=== PATIENT | male | born 1995 | race Caucasian/White ===

== ENCOUNTER 2016-10-29 17:54 | Emergency (ER) | payer OTHER ==
--- NOTE | 2016-10-29 18:37 | ER Document Report ---
HPI - HPI Patient complains to provider of: right foot injury Onset: Other Onset/Duration: Sudden Quality of pain: Throbbing Severity: Moderate Pain Level: 4 Context: Patient was playing basketball and injured right foot 4 days ago. Has been using crutches that he has at home, but complains of continued pain to mid right foot. Associated Symptoms: None Exacerbated by: Movement, Walking Relieved by: Remaining still Similar symptoms previously: No Recently seen / treated by doctor: No - ROS ROS below otherwise negative: Yes Systems Reviewed and Negative: Yes All other systems reviewed and negative - CONSTITUTIONAL Constitutional: DENIES: Fever - EENT EENT: DENIES: Congestion - NEURO Neurology: DENIES: Headache - CARDIOVASCULAR Cardiovascular: DENIES: Chest pain - RESPIRATORY Respiratory: DENIES: Trouble Breathing - GASTROINTESTINAL Gastrointestinal: DENIES: Abdominal Pain - URINARY Urinary: DENIES: Dysuria - MUSCULOSKELETAL Musculoskeletal: REPORTS: Extremity pain - Foot - DERM Skin Color: Ecchymosis Past Medical History - General Information source: Patient - Social History Smoking Status: Never Smoker Chew tobacco use (# tins/day): No Frequency of alcohol use: None Drug Abuse: None Lives with: Family Family History: Reviewed & Not Pertinent Neurological Medical History: Reports: Hx Seizures Surgical Hx: Negative Vertical Provider Document - CONSTITUTIONAL Agree With Documented VS: Yes Exam Limitations: No Limitations General Appearance: WD/WN, No Apparent Distress - INFECTION CONTROL TRAVEL OUTSIDE OF THE [place] IN LAST 30 DAYS: No - HEENT HEENT: Atraumatic, Normocephalic - RESPIRATORY Respiratory: Breath Sounds Normal, No Respiratory Distress O2 Sat by Pulse Oximetry: 97 - CARDIOVASCULAR Cardiovascular: Regular Rate, Regular Rhythm - GI/ABDOMEN Gastrointestinal: Abdomen Soft - MUSCULOSKELETAL/EXTREMETIES Musculoskeletal/Extremeties: Tender, Edema, Eccymosis - Arch of right foot extending to between toes - NEURO Level of Consciousness: Awake, Alert, Appropriate - DERM Integumentary: Warm, Dry Course - Re-evaluation Re-evalutation: 10/29/16 19:02 X-rays read as negative by radiologist and discussed with patient. - Vital Signs Vital signs: Temp Pulse Resp BP Pulse Ox 98 F 78 16 135/78 H 97 10/29/16 17:55 10/29/16 17:55 10/29/16 17:55 10/29/16 17:55 10/29/16 17:55 Procedures - Immobilization Right Foot Pre-Proc Neuro Vasc Exam: Normal Immobilizer type: Stanley wrap Performed by: PCT Post-Proc Neuro Vasc Exam: Normal Alignment checked and good: Yes Discharge - Discharge Clinical Impression: Right foot sprain Qualifiers: Encounter type: initial encounter Qualified Code(s): S93.601A - Unspecified sprain of right foot, initial encounter Condition: Good Disposition: HOME, SELF-CARE Instructions: Ice Packs ([facility]), Sprain ([facility]) Additional Instructions: ice and elevate foot use crutches motrin for pain follow up with PCP if not better one week return as needed. Prescriptions: Ibuprofen 800 mg PO PRN PRN #20 tablet PRN Reason: Forms: Return to Work
--- NOTE | 2016-10-29 18:55 | RADIOLOGY REPORT (SQ) ---
EXAM DESCRIPTION: FOOT RIGHT COMPLETE COMPLETED DATE/TIME: 10/29/2016 6:27 pm REASON FOR STUDY: injury COMPARISON: None. NUMBER OF VIEWS: Three views. TECHNIQUE: AP, lateral and oblique radiographic images acquired of the right foot. LIMITATIONS: None. FINDINGS: MINERALIZATION: Normal. BONES: No acute fracture or dislocation. No worrisome bone lesions. JOINTS: No effusions. SOFT TISSUES: No soft tissue swelling. No foreign body. OTHER: No other significant finding. IMPRESSION: NEGATIVE STUDY OF THE RIGHT FOOT. NO RADIOGRAPHIC EVIDENCE OF ACUTE INJURY. TECHNICAL DOCUMENTATION: JOB ID: [id number] [employer]- All Rights Reserved
[2016-10-29 19:10] VITALS: BP 123/77
== END 2016-10-29 19:10 | disposition home or self-care (01) ==
LOC: ER 17:54
DX: S93.601A Unspecified sprain of right foot, initial encounter (principal); X58.XXXA Exposure to other specified factors, initial encounter; Y93.67 Activity, basketball
CPT/HCPCS: 99283

== ENCOUNTER 2017-02-04 07:18 | Emergency (ER) | payer OTHER ==
[2017-02-04] MEDS ORDERED: NORMAL SALINE 1000 ML 1,000 ML IV PRN (07:30)
[2017-02-04 07:53] LABS: HEMATOCRIT 45.2 % (37.9-51.0); HEMOGLOBIN 14.6 g/dL (13.5-17.0); HGB HCT DIFFERENCE -1.4; MEAN CORPUSCULAR HEMOGLOBIN 29.6 pg (27.0-33.4); MEAN CORPUSCULAR HGB CONC 32.2 g/dL (32.0-36.0); MEAN CORPUSCULAR VOLUME 92 fl (80-97); RED BLOOD COUNT 4.92 10^6/uL (4.35-5.55); RED CELL DISTRIBUTION WIDTH 15.4 % (11.5-14.0)
[2017-02-04 08:09] LABS: BAND NEUTROPHILS % (MANUAL) 2 % (3-5); BASOPHILS % (MANUAL) 1 % (0-2); EOSINOPHILS % (MANUAL) 2 % (0-6); LYMPHOCYTES % (MANUAL) 57 % (13-45); TOTAL CELLS COUNTED 100
[2017-02-04 08:10] LABS: ALANINE AMINOTRANSFERASE 25 U/L (21-72); ALBUMIN 4.8 g/dL (3.5-5.0); ALKALINE PHOSPHATASE 76 U/L (38-126); ASPARTATE AMINO TRANSFERASE 29 U/L (17-59); BILIRUBIN,DIRECT 0.3 mg/dL (0.0-0.4); BILIRUBIN,TOTAL 0.7 mg/dL (0.2-1.3); BLOOD UREA NITROGEN 7 mg/dL (7-20); CALCIUM 9.3 mg/dL (8.4-10.2); CARBON DIOXIDE 12 mmol/L (22-30); CHLORIDE 105 mmol/L (98-107); CREATINE KINASE 108 U/L (55-170); CREATININE RESULT 0.78 mg/dL (0.52-1.25); GLUCOSE 127 mg/dL (75-110); POTASSIUM 3.7 mmol/L (3.6-5.0); RBC MORPHOLOGY COMMENT NORMO-CYTIC/CHROMIC; SODIUM 146.6 mmol/L (137-145); TOTAL PROTEIN 7.4 g/dL (6.3-8.2)
[2017-02-04 08:15] LABS: VALPROIC ACID 53.7 ug/mL (50.0-120.0)
[2017-02-04 08:26] LABS: ALCOHOL < 10 mg/dL (NONE DETECTED); ANION GAP 30 (5-19)
--- NOTE | 2017-02-04 08:35 | ER Document Report ---
ED General - General Chief Complaint: Probable Seizure Stated Complaint: POSSIBLE SEIZURE Time Seen by Provider: 02/04/17 07:29 TRAVEL OUTSIDE OF THE [place] IN LAST 30 DAYS: No - HPI Patient complains to provider of: Seizure Notes: Patient coming in today for evaluation after having a seizure. Friends are at bedside states seizure activity time clonic jerking ongoing for approximately 3- 5 minutes patient upon my evaluation slightly confused however no signs of any obvious distress. Friend states patient has a history of seizure activity and is on Depakote. Patient is able to answer a few questions states that he does not drink any alcohol does smoke marijuana denies any other illicit drugs. Denies any symptoms or trauma today. Day prior. Patient otherwise resting comfortably looks to be slightly postictal however mental status continues to improve during her evaluation in the room. States he has had seizures ever since he was an adolescent - Related Data Allergies/Adverse Reactions: sulfamethoxazole [From Septra] Allergy (Verified 05/20/14 22:33) trimethoprim [From Septra] Allergy (Verified 05/20/14 22:33) Past Medical History - Social History Smoking Status: Former Smoker Chew tobacco use (# tins/day): No Frequency of alcohol use: Occasional Drug Abuse: Marijuana Family History: Reviewed & Not Pertinent Patient has suicidal ideation: No Patient has homicidal ideation: No Neurological Medical History: Reports: Hx Seizures - depakote Renal/ Medical History: Denies: Hx Peritoneal Dialysis Review of Systems - Review of Systems Constitutional: No symptoms reported EENT: No symptoms reported Cardiovascular: No symptoms reported Respiratory: No symptoms reported Gastrointestinal: No symptoms reported Genitourinary: No symptoms reported Male Genitourinary: No symptoms reported Musculoskeletal: No symptoms reported Skin: No symptoms reported Hematologic/Lymphatic: No symptoms reported Neurological/Psychological: Seizure -: Yes All other systems reviewed and negative Physical Exam - Vital signs Vitals: Temp 97.5 F 02/04/17 07:29 Interpretation: Normal - General General appearance: Appears well, Alert - HEENT Head: Normocephalic, Atraumatic Eyes: Normal Pupils: PERRL - Respiratory Respiratory status: No respiratory distress Chest status: Nontender Breath sounds: Normal Chest palpation: Normal - Cardiovascular Rhythm: Regular Heart sounds: Normal auscultation Murmur: No - Abdominal Inspection: Normal Distension: No distension Bowel sounds: Normal Tenderness: Nontender Organomegaly: No organomegaly - Back Back: Normal, Nontender - Extremities General upper extremity: Normal inspection, Nontender, Normal color, Normal ROM , Normal temperature General lower extremity: Normal inspection, Nontender, Normal color, Normal ROM , Normal temperature, Normal weight bearing. No: Daryl's sign - Neurological Neuro grossly intact: Yes Cognition: Normal Orientation: AAOx4 Alicia Coma Scale Eye Opening: Spontaneous Alicia Coma Scale Verbal: Oriented Merced Coma Scale Motor: Obeys Commands Alicia Coma Scale Total: 15 Speech: Normal Motor strength normal: LUE, RUE, LLE, RLE Sensory: Normal - Psychological Associated symptoms: Normal affect, Normal mood - Skin Skin Temperature: Warm Skin Moisture: Dry Skin Color: Normal Course - Re-evaluation Re-evalutation: 02/04/17 08:35 We will obtain basic laboratory studies. 02/04/17 13:46 Initial laboratory studies show significant decrease in bicarb and anion gap. This resolved with IV fluids more likely reactive to the patient having a seizure. Patient is back to baseline no complaints neurologically intact will discharge patient home. Breakthrough seizure with known seizure disorder and previous neurology evaluation. Now returned to neuro baseline. Labs reviewed. No indication of new or acute process. Patient appears safe for discharge with observation and close outpatient F/U with PCP or neurology. Seizure warnings discussed with patient / family. - Vital Signs Vital signs: Temp Pulse Resp BP Pulse Ox 97.5 F 21 H 122/63 98 02/04/17 07:29 02/04/17 10:46 02/04/17 10:46 02/04/17 10:46 - Laboratory Result Diagrams: 02/04/17 07:29 02/04/17 08:55 Laboratory results interpreted by me: 02/04/17 02/04/17 02/04/17 07:29 07:29 08:28 WBC 15.0 H RDW 15.4 H Seg Neuts % (Manual) 23 L Band Neutrophils % 2 L Lymphocytes % (Manual) 57 H Metamyelocytes % 1 H Abs Lymphs (Manual) 9.3 H Sodium 146.6 H Chloride Carbon Dioxide 12 L Anion Gap 30 H BUN Glucose 127 H Calcium Urine Ketones 20 H Salicylates < 1.0 L Acetaminophen < 10 L 02/04/17 08:55 WBC RDW Seg Neuts % (Manual) Band Neutrophils % Lymphocytes % (Manual) Metamyelocytes % Abs Lymphs (Manual) Sodium Chloride 112 H Carbon Dioxide 20 L Anion Gap BUN 6 L Glucose Calcium 7.9 L Urine Ketones Salicylates Acetaminophen Discharge - Discharge Clinical Impression: Seizure Condition: Good Disposition: HOME, SELF-CARE Instructions: Seizure, Known Epileptic ([facility]) Additional Instructions: Please continue your medication as prescribed. Please avoid smoking cigarettes and marijuana. Return to ER symptoms worsen follow-up with your primary care physician. Forms: Return to Work
[2017-02-04] MEDS ORDERED: NORMAL SALINE 1000 ML 1,000 ML IV ONE (08:50)
[2017-02-04 09:16] LABS: APPEARANCE,URINE CLEAR; BILIRUBIN,URINE NEGATIVE (NEGATIVE); GLUCOSE, URINE NEGATIVE (NEGATIVE); KETONES,URINE 20 mg/dL (NEGATIVE); LEUKOCYTE ESTERASE,URINE NEGATIVE (NEGATIVE); NITRITE,URINE NEGATIVE (NEGATIVE); PROTEIN,URINE NEGATIVE (NEGATIVE); URINE SPECIFIC GRAVITY 1.014; UROBILINOGEN,URINE NEGATIVE mg/dL (<2.0)
[2017-02-04 09:30] LABS: ANION GAP 11 (5-19); BLOOD UREA NITROGEN 6 mg/dL (7-20); CALCIUM 7.9 mg/dL (8.4-10.2); CARBON DIOXIDE 20 mmol/L (22-30); CHLORIDE 112 mmol/L (98-107); CREATININE RESULT 0.68 mg/dL (0.52-1.25); GLUCOSE 89 mg/dL (75-110); POTASSIUM 4.2 mmol/L (3.6-5.0); SODIUM 143.3 mmol/L (137-145)
[2017-02-04 09:40] LABS: URINE BARBITURATES SCREEN NEGATIVE; URINE METHADONE SCREEN NEGATIVE; URINE OPIATES LOW NEGATIVE; URINE PHENCYCLIDINE SCREEN NEGATIVE
[2017-02-04 10:59] VITALS: BP 122/63
--- NOTE | 2017-02-06 09:02 | EKG REPORT ---
SEVERITY:- OTHERWISE NORMAL ECG - SINUS TACHYCARDIA : Confirmed by: Mony Dempsey 06-Feb-2017 09:02:07
== END 2017-02-04 11:06 | disposition home or self-care (01) ==
LOC: ER 07:18
DX: R56.9 Unspecified convulsions (principal); Z87.891 Personal history of nicotine dependence
CPT/HCPCS: 93005; 99284; 96360; 96361; 36415; 80307 ×4; 82550; 85025; 80048; 80053; 81001; 80164; 93010; J7030

== ENCOUNTER 2017-07-19 19:09 | Emergency (ER) | payer OTHER ==
[2017-07-19 21:17] LABS: ABSOLUTE LYMPHOCYTES (AUTO) 0.8 10^3/uL (0.5-4.7); ABSOLUTE MONOCYTES (AUTO) 1.3 10^3/uL (0.1-1.4); ABSOLUTE NEUT (AUTO) 8.3 10^3/uL (1.7-8.2); BASOPHILS % (AUTO) 0.2 % (0-2); EOSINOPHILS % (AUTO) 0.2 % (0-6); HEMATOCRIT 48.2 % (37.9-51.0); HEMOGLOBIN 16.2 g/dL (13.5-17.0); LYMPHOCYTES % (AUTO) 7.6 % (13-45); MEAN CORPUSCULAR HEMOGLOBIN 29.1 pg (27.0-33.4); MEAN CORPUSCULAR HGB CONC 33.6 g/dL (32.0-36.0); MEAN CORPUSCULAR VOLUME 87 fl (80-97); MONOCYTES % (AUTO) 12.4 % (3-13); PLATELET COUNT 163 10^3/uL (150-450); RED BLOOD COUNT 5.56 10^6/uL (4.35-5.55); RED CELL DISTRIBUTION WIDTH 15.7 % (11.5-14.0); SEGMENTED NEUTROPHILS % (AUTO) 79.6 % (42-78); TOTAL CELLS COUNTED % (AUTO) 100 %; WHITE BLOOD COUNT 10.5 10^3/uL (4.0-10.5)
[2017-07-19] MEDS ORDERED: ONDANSETRON 4 MG TAB.RAPDIS PO ONE (21:27)
[2017-07-19] MEDS ORDERED: KETOROLAC TROMETHAMINE INJ/PF 30 MG/1 ML SDV IM ONE (21:27)
--- NOTE | 2017-07-19 21:30 | ER Document Report ---
ED GI/ - General Chief Complaint: Abdominal Pain Stated Complaint: ABDOMINAL PAIN Time Seen by Provider: 07/19/17 21:07 Mode of Arrival: Ambulatory Information source: Patient TRAVEL OUTSIDE OF THE [place] IN LAST 30 DAYS: No - HPI Patient complains to provider of: Other - cough, headache, bodyaches, abdominal pain, nausea Notes: 07/19/17 21:28 Patient is here with complaints of cough with body aches and mild headache. States the cough and body aches started yesterday. When he woke up this morning and headache seems to be worse when he is coughing. He denies any head injury or fall. He is on no blood thinners. It was not a sudden onset, thunderclap headache. He denies any associated blurred or loss vision, numbness , tingling, weakness, neck stiffness or rash. He denies any fevers. He denies any production to his cough. He denies any shortness of breath. States that his roommate was diagnosed with influenza yesterday. He states that since he has been here he started having some abdominal pain mainly when he is coughing. He has had some intermittent nausea, but denies any vomiting or diarrhea. No dysuria or hematuria. No rash. He has a history of epilepsy, he denies any other chronic medical conditions. No other complaints at this time. - Related Data Allergies/Adverse Reactions: sulfamethoxazole [From Novra] Allergy (Verified 07/19/17 19:10) trimethoprim [From Novra] Allergy (Verified 07/19/17 19:10) Past Medical History - Social History Smoking Status: Unknown if Ever Smoked Family History: Reviewed & Not Pertinent Patient has suicidal ideation: No Patient has homicidal ideation: No Neurological Medical History: Reports: Hx Seizures - depakote Renal/ Medical History: Denies: Hx Peritoneal Dialysis Review of Systems - Review of Systems -: Yes All other systems reviewed and negative Physical Exam - Vital signs Vitals: Temp Pulse Resp BP Pulse Ox 99.8 F 107 H 22 H 122/74 96 07/19/17 19:24 07/19/17 19:24 07/19/17 19:24 07/19/17 19:24 07/19/17 19:24 - Notes Notes: GENERAL: alert, cooperative, nontoxic, no distress. HEAD: normocephalic, atraumatic EYES: conjunctiva pink without discharge, no external redness or swelling. EARS: no external swelling, no external redness. Canals clear. TMs pearly edge with normal landmarks. No erythema or perforation. NOSE: atraumatic, no external swelling MOUTH/THROAT: mucous membranes moist and pink, posterior pharynx without erythema, swelling, exudate. No trismus or drooling. NECK: soft, supple, full range of motion, no meningismus. CHEST: no distress, lungs clear and equal throughout. No wheezing, rales, rhonchi. CARDIAC: regular rate and rhythm, no murmur, normal capillary refill, normal pulses. No peripheral edema noted. ABDOMEN: Soft, mild generalized abdominal wall tenderness. No rebound tenderness or guarding. No mass. BACK: full range of motion, no CVA tenderness. EXTREMITIES: full range of motion of all extremities. No redness, no swelling. NEURO: alert and oriented x 3, no focal deficits, full range of motion of all extremities. Cranial nerves II through XII are grossly intact. PYSCH: appropriate mood, affect. Patient is cooperative. SKIN: pink, warm, dry, no rash. Course - Re-evaluation Re-evalutation: 07/19/17 22:12 Patient is nontoxic appearing with stable vitals. Is here with complaints of cough, congestion, body aches, nausea, headache, abdominal pain. His roommate was diagnosed with the flu. On initial exam he has some mild abdominal wall tenderness on exam. After his Toradol shot, he has no abdominal tenderness at all. Headache is feeling better at this time. Lab work is all unremarkable. Urinalysis shows some mild signs of the vision. This likely is some of the patient's cause for 1 of his body aches and headache. Chest x-ray is negative. Is possible that he could have influenza, although he is not running any fevers. He certainly has a viral type syndrome. At this point patient will be discharged home with a prescription for Naprosyn, Phenergan, Tessalon. Instructions to rest and drink plenty fluids. Follow-up if not better in the next 3-5 days, sooner for worsening symptoms, high fever, persistent vomiting, severe abdominal pain, severe headache, blurred or loss vision, neck stiffness, or for any further concerns. Patient has no signs of meningitis or other serious cause of his headache. He is not on blood thinners and had no injury. He has a nonfocal neurological exam. No sign or risk of cranial hemorrhage. The patient is noted to have elevated blood pressure during today's emergency department visit. The patient was informed of this finding. The patient was instructed that this may be related to pre-hypertension and requires further evaluation with a primary care provider. The patient has no hypertensive symptoms at this time. The patient's emergency department workup and current diagnosis were explained to the patient and or family. Follow-up instructions were provided. Medications if prescribed were discussed. Instructions for when to return to the emergency department including specific worrisome symptoms were discussed with the patient and/or family. - Vital Signs Vital signs: Temp Pulse Resp BP Pulse Ox 99.8 F 107 H 22 H 122/74 96 07/19/17 19:24 07/19/17 19:24 07/19/17 19:24 07/19/17 19:24 07/19/17 19:24 - Laboratory Result Diagrams: 07/19/17 21:00 07/19/17 21:00 Laboratory results interpreted by me: 07/19/17 07/19/17 21:00 21:00 RBC 5.56 H RDW 15.7 H Seg Neutrophils % 79.6 H Lymphocytes % 7.6 L Absolute Neutrophils 8.3 H Urine Protein 30 H Urine Ketones 20 H Urine Urobilinogen 4.0 H - Diagnostic Test Radiology reviewed: Image reviewed, Reports reviewed - Chest x-ray negative Discharge - Discharge Clinical Impression: Viral syndrome, Nausea Headache Qualifiers: Headache type: unspecified Headache chronicity pattern: acute headache Intractability: not intractable Qualified Code(s): R51 - Headache Condition: Stable Disposition: HOME, SELF-CARE Instructions: Abdominal Pain ([facility]), Viral Syndrome ([facility]) Additional Instructions: Take medications as prescribed. You may also take Tylenol as needed for pain. Drink plenty of fluids. Rest. Follow-up if not better in 3-5 days, sooner for worsening pain, fever, numbness, tingling, weakness, blurred or loss vision, neck stiffness, severe abdominal pain, persistent vomiting, or for any further concerns. Your blood pressure was elevated during today's visit. Have this rechecked with your doctor. Prescriptions: Benzonatate [Tessalon Perle 100 mg Capsule] 100 mg PO Q8HP PRN #20 cap PRN Reason: Naproxen [Naprosyn] 500 mg PO BID #20 tablet Promethazine HCl [Phenergan 25 mg Tablet] 1 - 2 tab PO Q6H PRN #15 tablet PRN Reason: Forms: Elevated Blood Pressure, Smoking Cessation Education Referrals: BESSIE OSUNA MD [Primary Care Provider] - Follow up as needed
[2017-07-19 21:36] LABS: APPEARANCE,URINE SLIGHTLY-CLOUDY; BILIRUBIN,URINE NEGATIVE (NEGATIVE); COLOR,URINE YELLOW; GLUCOSE, URINE NEGATIVE (NEGATIVE); KETONES,URINE 20 mg/dL (NEGATIVE); LEUKOCYTE ESTERASE,URINE NEGATIVE (NEGATIVE); NITRITE,URINE NEGATIVE (NEGATIVE); PROTEIN,URINE 30 mg/dL (NEGATIVE); URINE SPECIFIC GRAVITY 1.026
[2017-07-19 21:37] LABS: ALANINE AMINOTRANSFERASE 27 U/L (21-72); ALBUMIN 4.4 g/dL (3.5-5.0); ALKALINE PHOSPHATASE 63 U/L (38-126); ANION GAP 16 (5-19); ASPARTATE AMINO TRANSFERASE 21 U/L (17-59); BILIRUBIN,DIRECT 0.2 mg/dL (0.0-0.4); BILIRUBIN,TOTAL 0.7 mg/dL (0.2-1.3); BLOOD UREA NITROGEN 9 mg/dL (7-20); CALCIUM 9.6 mg/dL (8.4-10.2); CARBON DIOXIDE 24 mmol/L (22-30); CHLORIDE 105 mmol/L (98-107); GLUCOSE 93 mg/dL (75-110); LIPASE 53.3 U/L (23-300); POTASSIUM 4.1 mmol/L (3.6-5.0); SODIUM 144.7 mmol/L (137-145); TOTAL PROTEIN 7.4 g/dL (6.3-8.2)
--- NOTE | 2017-07-19 21:51 | RADIOLOGY REPORT (SQ) ---
EXAM DESCRIPTION: CHEST 2 VIEWS COMPLETED DATE/TIME: 07/19/2017 9:41 pm REASON FOR STUDY: cough COMPARISON: None. EXAM PARAMETERS: NUMBER OF VIEWS: two views TECHNIQUE: Digital Frontal and Lateral radiographic views of the chest acquired. RADIATION DOSE: NA LIMITATIONS: none FINDINGS: LUNGS AND PLEURA: No opacities, masses or pneumothorax. No pleural effusion. MEDIASTINUM AND HILAR STRUCTURES: No masses or contour abnormalities. HEART AND VASCULAR STRUCTURES: Heart normal size. No evidence for failure. BONES: No acute findings. HARDWARE: None in the chest. OTHER: No other significant finding. IMPRESSION: NO ACUTE RADIOGRAPHIC FINDING IN THE CHEST. TECHNICAL DOCUMENTATION: JOB ID: [id number] [employer]- All Rights Reserved Reading location - IP/workstation name: [email or web address]
[2017-07-19] MEDS ORDERED: ACETAMINOPHEN 325 MG TABLET PO ONE (22:41)
[2017-07-19 23:53] VITALS: BP 127/53
== END 2017-07-19 22:45 | disposition home or self-care (01) ==
LOC: ER 19:09
DX: B34.9 Viral infection, unspecified (principal); R11.0 Nausea; R51 Headache; R10.9 Unspecified abdominal pain; R05 Cough; M79.1 Myalgia; R09.81 Nasal congestion; R03.0 Elevated blood-pressure reading, without diagnosis of hypertension
CPT/HCPCS: 99284; 96372; 36415; 83690; 85025; 80053; 81001; 71046; S0119; J1885

== ENCOUNTER 2018-10-14 17:12 | Emergency (ER) | payer OTHER ==
[2018-10-14 17:20] VITALS: BP 130/77
[2018-10-14] MEDS ORDERED: IBUPROFEN 800 MG TABLET PO ONE (17:43)
--- NOTE | 2018-10-14 17:44 | ER Document Report ---
HPI - HPI Patient complains to provider of: Right rib pain Time Seen by Provider: 10/14/18 17:39 Pain Level: 4 Context: Patient is a 23-year-old male history of seizures currently on Depakote presents to the emergency department for right rib pain. Patient states last week he started with generalized cough and congestion. States he feels as if the cough and congestion have subsided but now he has some generalized right rib pain more so when he takes a deep breath and coughs. Patient denies any trauma or injury that he knows of. Patient denies any chest pain. States is mostly right lateral ribs. Patient is denying any anterior chest pain or shortness of breath at this time. Past Medical History - General Information source: Patient - Social History Smoking Status: Never Smoker Family History: Reviewed & Not Pertinent Neurological Medical History: Reports: Hx Seizures - depakote Renal/ Medical History: Denies: Hx Peritoneal Dialysis Vertical Provider Document - CONSTITUTIONAL Agree With Documented VS: Yes Notes: GENERAL: Alert, interacts well. No acute distress. HEAD: Normocephalic, atraumatic. EYES: Pupils equal, round, and reactive to light. Extraocular movements intact. ENT: Oral mucosa moist, tongue midline. NECK: Full range of motion. Supple. Trachea midline. LUNGS: Clear to auscultation bilaterally, no wheezes, rales, or rhonchi. No re spiratory distress. HEART: Regular rate and rhythm. No murmur Chest: No crepitus felt, no erythema or ecchymosis noted anterior posterior chest wall. Pain palpation right lateral intercostal muscles. ABDOMEN: Soft, non-tender. Non-distended. Bowel sounds present in all 4 quadrants. EXTREMITIES: Moves all 4 extremities spontaneously. No edema, normal radial and dorsalis pedis pulses bilaterally. No cyanosis. BACK: no cervical, thoracic, lumbar midline tenderness. No saddle anesthesia, normal distal neurovascular exam. NEUROLOGICAL: Alert and oriented x3. Normal speech. cranial nerves II through XII grossly intact PSYCH: Normal affect, normal mood. SKIN: Warm, dry, normal turgor. No rashes or lesions noted. - INFECTION CONTROL TRAVEL OUTSIDE OF THE [place] IN LAST 30 DAYS: No Course - Re-evaluation Re-evalutation: 10/14/18 18:30 Ribs w/Chest X-Ray 10/14/18 17:42 IMPRESSION: NO PNEUMOTHORAX. NO DISPLACED RIB FRACTURES. Patient states after Motrin administration his chest pain has improved yet is not completely gone. Discussed likely muscular strain from the recent upper respiratory infection. At this time will discharge with return precautions and follow-up recommendations. Verbal discharge instructions given a the bedside and opportunity for questions given. Medication warnings reviewed. Patient is in agreement with this plan and has verbalized understanding of return precautions and the need for primary care follow-up in the next 24-72 hours. This medical record was dictated with voice recognizing software. There may be grammatical, syntax errors that are unintended. - Vital Signs Vital signs: Temp Pulse Resp BP Pulse Ox 98.2 F 81 18 130/77 H 97 10/14/18 17:19 10/14/18 17:19 10/14/18 17:19 10/14/18 17:19 10/14/18 17:19 Discharge - Discharge Clinical Impression: Rib pain on right side Condition: Stable Disposition: HOME, SELF-CARE Instructions: Anti-Inflammatory Medication ([facility]), Chest Wall Pain ([facility]) Additional Instructions: As we discussed you have been seen and treated in the emergency department for your right rib pain. This is likely due to your generalized cough and congestion. Please make sure taking [id number] Tylenol or Motrin for generalized muscle pains. Please make sure you follow-up with your primary care provider in the next 24 to 48 hours. Please return to the emergency room should you have any further concerns. Forms: Return to Work Referrals: BESSIE OSUNA MD [Primary Care Provider] - Follow up as needed
--- NOTE | 2018-10-14 18:21 | RADIOLOGY REPORT (SQ) ---
EXAM DESCRIPTION: RIBS RIGHT W/PA CHEST COMPLETED DATE/TIME: 10/14/2018 6:10 pm REASON FOR STUDY: pain COMPARISON: 2018 chest TECHNIQUE: Frontal view of the chest and additional views of the right ribs acquired. NUMBER OF VIEWS: Four view. LIMITATIONS: None. FINDINGS: FRONTAL CXR: No pneumothorax. No pleural effusion. No atelectasis or infiltrates. RIBS: No displaced rib fractures. No lytic or blastic bony lesions. OTHER: No other significant finding. IMPRESSION: NO PNEUMOTHORAX. NO DISPLACED RIB FRACTURES. COMMENT: SITE OF TRAUMA/COMPLAINT MARKED/STAMP COMPLETED: NO. TECHNICAL DOCUMENTATION: JOB ID: [id number] [email or web address]- All Rights Reserved Reading location - IP/workstation name: [email or web address]
== END 2018-10-14 18:39 | disposition home or self-care (01) ==
LOC: ER 17:12
DX: R07.81 Pleurodynia (principal); R05 Cough
CPT/HCPCS: 99283

== ENCOUNTER → 2019-09-03 | Outpatient (CLI) | payer SELFPAY ==
--- NOTE | 2019-09-04 16:13 | NEURO WORKBENCH EEG REPORT ---
EEG Report Patient: Bryon Naranjo ID: [id number] Referring Doctor: Bandar Yang MD DOS: 09/03/2019 Medications: Depakote History This is a 24 year old right handed male with a history of asthma and idiopathic generalized epilepsy diagnosed in 2008. This EEG was requested for seizures. EEG Interpretation This EEG was recorded in the awake and drowsy states. The awake EEG is characterized by a well -organized background with a well developed and reactive posterior dominant rhythm of 9 Hz. The remainder of the background was characterized by a combination of alpha with low amplitude beta frequencies. Drowsiness was characterized by slowing of the background rhythms. Vertex waves and sleep spindles were not definitively noted. Photic stimulation resulted in a good driving response. Hyperventilation resulted in generalized slowing of the background rhythms. There were occasional sharply contoured waveforms in the left and right central regions, independently. These were not definitively epileptiform in morphology. The EKG showed a regular rhythm. EEG Classification * Sharply contoured waveforms, bilateral independent, central, uncertain significance EEG Impression This EEG is essentially normal but the sharply contoured waveforms in the central regions are of uncertain significance as they do not appear definitively epileptiform. If clinically indicated, a repeat EEG with sleep obtained may be of benefit. INTERPRETING NEUROLOGIST: Rachel Zamarripa MD, FRCPC Board Certified in Neurology, with special qualification in Child Neurology, and in Clinical Neurophysiology [facility]
== END ==
LOC: NEURO 12:37
PROVIDERS: ATTEND Pediatrics
DX: G40.309 Generalized idiopathic epilepsy and epileptic syndromes, not intractable, without status epilepticus (principal); Z91.19 Patient's noncompliance with other medical treatment and regimen
CPT/HCPCS: 95819